=== PATIENT | female | born 1985 | race Caucasian/White ===

== ENCOUNTER 2024-08-17 11:35 | Emergency (ER) | payer OTHER ==
[2024-08-17] MEDS ORDERED: Dexamethasone 10 MG/ML VIAL ONE (14:39)
[2024-08-17] MEDS ORDERED: Methocarbamol 500 MG TAB ONE (14:39)
[2024-08-17] MEDS ORDERED: Ketorolac Tromethamine 30 MG (1 mL) VIAL ONE (14:40)
== END 2024-08-17 15:18 | disposition home or self-care (01) ==
LOC: ERS 11:35
DX: S39.012A Strain of muscle, fascia and tendon of lower back, initial encounter (principal); X58.XXXA Exposure to other specified factors, initial encounter
CPT/HCPCS: J1100; J1885